=== PATIENT | male | born 1955 | race Two or more races ===

== ENCOUNTER 2024-03-30 13:41 | Emergency (ER) | payer SELFPAY ==
[~2024-03-30] VITALS: Ht 162.6 cm; Wt 82.0 kg
[2024-03-30 13:48] VITALS: TEMP 98.3
[2024-03-30] MEDS ORDERED: SULF-261 PO (16:29)
[2024-03-30] MEDS ORDERED: NAPR-1025 PO (16:29)
[2024-03-30] MEDS: CefTRIAXone SODIUM 1 GM/VIAL IM ONE (16:55)
[2024-03-30] MEDS: LIDOCAINE/PF 1% 2 ML VIAL IM ONE (16:55)
[2024-03-30] MEDS: KETOROLAC TROMETHAMINE 60 MG/2 ML VIAL IM ONE (16:55)
[2024-03-30 17:04] VITALS: BP 144/74; PULSE 82; RESP 16
== END 2024-03-30 17:24 | disposition home or self-care (01) ==
LOC: EMS 13:41
DX: L03.116 Cellulitis of left lower limb (principal); M25.562 Pain in left knee
CPT/HCPCS: 99284; 73562; 96372; J0696; J1885; J3490

== ENCOUNTER 2025-09-11 08:27 | Emergency (ER) | payer MEDICARE, MEDICAID ==
[~2025-09-11] VITALS: Ht 165.1 cm; Wt 76.0 kg
[~2025-09-11 08:27] MED LIST: NAPR-1196 PO; SULF1TAB94 PO
[2025-09-11 08:36] VITALS: BP 117/80; PULSE 57; RESP 18; TEMP 98.1; O2SAT 99
[2025-09-11] MEDS ORDERED: CEPH-558 PO (11:41)
== END 2025-09-11 12:32 | disposition home or self-care (01) ==
LOC: EMS 08:27
DX: S01.111A Laceration without foreign body of right eyelid and periocular area, initial encounter (principal); S66.911A Strain of unspecified muscle, fascia and tendon at wrist and hand level, right hand, initial encounter; S60.221A Contusion of right hand, initial encounter; S09.90XA Unspecified injury of head, initial encounter; Z79.899 Other long term (current) drug therapy; V18.4XXA Pedal cycle driver injured in noncollision transport accident in traffic accident, initial encounter; Y93.55 Activity, bike riding; Y92.89 Other specified places as the place of occurrence of the external cause; Y99.8 Other external cause status
CPT/HCPCS: 73200; 99284; 73130-TC; Z7502